=== PATIENT | male | born 1940 | race Caucasian/White ===

== ENCOUNTER 2020-07-16 12:51 | Outpatient (CLI) | payer MEDICARE ==
[2020-07-16] MEDS ORDERED: Iopamidol 370 76% 100 ML VIAL ONE (13:04)
--- NOTE | 2020-07-16 18:51 | CT ---
CT ABDOMEN AND PELVIS PERFORMED WITH AND WITHOUT CONTRAST ENHANCEMENT: 07/16/20 HISTORY: Hematuria. Patient has a bladder tumor. COMPARISON: A 08/20/15 study. The lung bases are clear of infiltrates. There is some scarring present. No pulmonary nodules are id entified. Two hypodensities within the left lobe of the liver are most likely cysts. There are stable. The sple en, pancreas and gallbladder regions all appear unremarkable. The right and left adrenal glands are normal. Small exophytic upper pole right renal cyst is stable a s compared to the prior study. No renal calculi. No obstruction. No filling defects within either alanis al pelvis or ureter. No significant periaortic or mesenteric adenopathy. CT OF PELVIS PERFORMED WITH AND WITHOUT CONTRAST ENHANCEMENT: Left sided bladder mass is present. There is no significant pelvic lymphadenopathy. No free fluid. Review of osseous structures show no concerning lytic or blastic bone changes. IMPRESSION: 1. Left sided bladder mass measuring approximately 3.3 cm in maximum length. No evidence for met astatic disease. 2. Stable hypodensities within the left lobe of the liver most likely cysts. POS: SAMMIE
== END 2020-07-16 12:52 | disposition home or self-care (01) ==
LOC: BICCT 12:51
PROVIDERS: ATTEND Urology
DX: D41.4 Neoplasm of uncertain behavior of bladder (principal); N32.89 Other specified disorders of bladder; K76.89 Other specified diseases of liver
CPT/HCPCS: 74178; 82565; Q9967

== ENCOUNTER 2020-07-24 07:59 | Outpatient (CLI) | payer MEDICARE, OTHER ==
[2020-07-24 16:21] LABS: Bilirubin Neg (Negative); Blood, Urine 50 (Negative); Clarity Clear (Clear); Glucose, Urine (Dipstick) Normal (Negative); Ketone, Urine Negative (Negative); Leukocyte Negative (Negative); Nitrite Negative (Negative); Protein, Urine (Dipstick) Negative (Neg-Trace); Specific Gravity, Urine 1.015 (1.002-1.036); Urobilinogen Normal mg/dL (Less than 2)
[2020-07-24 16:22] LABS: Hemoglobin 11.1 g/dL (14.0-18.0); Mean Corpuscular HGB CONC 32.8 G/DL (32.0-36.0); Mean Corpuscular Hemoglobin 28.3 PG (27.0-33.0); Mean Corpuscular Volume 86.2 fl (80.0-100.0); Platelet Count 205 10x3/uL (130-400); RBC Distribution Width 13.9 % (11.5-14.5); Red Blood Cell (RBC) Count 3.92 10x6/uL (4.40-5.80); White Blood Cell (WBC) Count 8.2 10x3/uL (4.5-11.0)
[2020-07-24 16:30] LABS: RBC/HPF 21-50 HPF (0-3); Squamous Epithelial None Seen HPF (0-3)
[2020-07-24 16:31] LABS: Bacteria/HPF Rare-Few HPF (None Seen)
[2020-07-24 16:41] LABS: PTT 24.7 sec (22.0-33.0); Prothrombin Time 10.2 sec (9.5-12.1)
[2020-07-24 16:45] LABS: Anion Gap 16 mmol/L (10-20); BUN (Urea Nitrogen) 17 mg/dL (8.4-25.7); Calc. Creatinine Clearance 0 mL/min (70-130); Calcium 8.6 mg/dL (7.8-10.44); Carbon Dioxide 21 mmol/L (23-31); Chloride 102 mmol/L (98-107); Glucose 123 mg/dL (83-110); Potassium 3.9 mmol/L (3.5-5.1); Sodium 135 mmol/L (136-145)
[2020-07-25 02:04] LABS: SARS-CoV-2 MS2 Positive; SARS-CoV-2 N Gene Negative; SARS-CoV-2 S Gene Negative; SARS-CoV-2 by NAA Not Detected (NotDetected); SARS-CoV-2 orf1ab Negative
== END 2020-07-24 08:00 | disposition home or self-care (01) ==
LOC: LABBT 07:59
PROVIDERS: ATTEND Urology
DX: Z01.818 Encounter for other preprocedural examination (principal); Z01.812 Encounter for preprocedural laboratory examination; Z20.828 Contact with and (suspected) exposure to other viral communicable diseases; D41.4 Neoplasm of uncertain behavior of bladder
CPT/HCPCS: 80048; 81001; 85027; 85610; 85730; 87086; 93005; U0003; 87635; 93010

== ENCOUNTER 2020-10-02 13:19 | Outpatient (CLI) | payer MEDICARE ==
[2020-09-19 13:01] LABS: Hemoglobin 11.2 g/dL (13.5-17.5); Mean Corpuscular HGB CONC 31.6 g/dL (32.0-36.0); Mean Corpuscular Hemoglobin 27.5 pg (27.0-33.0); Mean Platelet Volume 9.7 fl (7.4-10.4); Platelet Count 188 10x3/uL (150-450); RBC Distribution Width 14.1 % (11.5-14.5); Red Blood Cell (RBC) Count 4.07 10x6/uL (4.32-5.72); White Blood Cell (WBC) Count 4.1 10x3/uL (3.5-10.5)
[2020-09-19 13:22] LABS: Anion Gap 12 mmol/L (10-20); BUN (Urea Nitrogen) 16 mg/dL (8.4-25.7); Calc. Creatinine Clearance 0 mL/min (70-130); Carbon Dioxide 26 mmol/L (23-31); Chloride 102 mmol/L (98-107); Glucose 101 mg/dL (83-110); Potassium 4.2 mmol/L (3.5-5.1); Sodium 136 mmol/L (136-145)
[2020-09-19 13:34] LABS: PTT 27.3 sec (22.0-33.0); Prothrombin Time 10.4 sec (9.5-12.1)
[2020-09-20 02:07] LABS: SARS-CoV-2 PCR by NAA Not Detected (NotDetected)
--- NOTE | 2020-09-24 15:20 | EKG ---
Test Reason : Blood Pressure : / mmHG Vent. Rate : 063 BPM Atrial Rate : 063 BPM P-R Int : 190 ms QRS Dur : 088 ms QT Int : 422 ms P-R-T Axes : 043 027 059 degrees QTc Int : 431 ms Normal sinus rhythm Normal ECG When compared with ECG of 24-JUL-2020 16:07, (Unconfirmed) No significant change was found Confirmed by VANESA FRASER (2) on 09/24/2020 3:20:04 PM Referred By: GABI Confirmed By:VANESA FRASER
[2020-10-02 22:37] LABS: SARS-CoV-2 PCR by NAA Not Detected (NotDetected)
== END 2020-10-02 13:20 | disposition home or self-care (01) ==
LOC: LABBT 13:19
PROVIDERS: ATTEND Urology
DX: Z01.818 Encounter for other preprocedural examination (principal); D41.4 Neoplasm of uncertain behavior of bladder; Z20.822 Contact with and (suspected) exposure to COVID-19
CPT/HCPCS: 80048; 85027; 85610; 85730; 87086; 93005; U0003 ×2; U0005 ×2; 87635; 93010

== ENCOUNTER 2020-10-07 07:50 | Day surgery (SDC) | payer MEDICARE ==
[2020-10-06 13:07] VITALS: BMI 29.5
[2020-10-07] MEDS ORDERED: mitoMYcin 40 MG in Water For Injection,Sterile 20 ML FS SCH (09:15)
[2020-10-07] MEDS ORDERED: Iothalamate Meglumine 60% 50 ML VIAL FS ONE (09:44)
[2020-10-07] MEDS ORDERED: Fentanyl 100 MCG/2 ML VIAL ONE ×3 (10:04→11:47)
[2020-10-07] MEDS ORDERED: Levofloxacin 500 mg/D5W 100 ml Premix Bag ONE (10:08)
[2020-10-07] MEDS ORDERED: Dexamethasone 20 MG/5 ML VIAL ONE (10:50)
[2020-10-07] MEDS ORDERED: Ondansetron PF 4 MG/2 ML Vial ONE (10:50)
[2020-10-07] MEDS ORDERED: Rocuronium Bromide 10 MG/ML (10ML VIAL) ONE (10:50)
[2020-10-07] MEDS ORDERED: Ketorolac Tromethamine 30 MG/ML VIAL ONE (10:50)
[2020-10-07] MEDS ORDERED: Lidocaine 1% PF 5 ML VIAL ONE (10:50)
[2020-10-07] MEDS ORDERED: PROPOFOL 200 MG/20 ML VIAL ONE (10:50)
[2020-10-07] MEDS ORDERED: Glycopyrrolate 0.2 MG/ML 5 ML SYRINGE ONE (10:50)
[2020-10-07] MEDS ORDERED: SUGAMMADEX SODIUM 200 MG/2 ML VIAL ONE (11:01)
[2020-10-07] MEDS ORDERED: Oxybutynin 5 MG TAB ONE (11:23)
--- NOTE | 2020-10-07 11:30 | OP ---
DATE OF PROCEDURE: 10/07/2020 PREOPERATIVE DIAGNOSIS: Bladder tumor. 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 PROCEDURES PERFORMED: Transurethral resection of large bladder tumor, bilateral retrograde pyelogram, instillation of mitomycin-C. ANESTHESIA: General. COMPLICATIONS: None. ESTIMATED BLOOD LOSS: Minimal. SPECIMENS: Bladder tumor, muscle biopsy. DESCRIPTION OF PROCEDURE: After informed consent, the patient was taken to the operating room, transferred to the table under his own power. Anesthesia was established. A time-out was performed, showing the correct patient, site, and procedure. Preoperative antibiotics were administered. He was prepped and draped in the lithotomy position. I began by performing a digital rectal exam noting an enlarged prostate about 50 g, smooth and symmetric. No nodules or induration. No lateral wall fixation. I then donned gloves and gown. The rigid resectoscope was advanced through the urethra noting normal course and caliber of the urethra into the prostate noting large coapting lateral lobes and an obstructing bladder neck. The bladder was entered and systematically examined noting a large tumor occupying almost the entirety of the left wall. There were no other tumors or satellite lesions surrounding this. Both ureters were normal in appearance, although the left ureter was about 5 to 10 mm away from the tumor. The Pollack catheter was used to perform right and left retrograde pyelogram, both of which showed good filling of both ureters and renal pelves without contour abnormalities or filling defects. I then inserted the resection loop and removed the entirety of the bladder tumor, which was then passed off as specimen. Hemostasis was achieved with cautery. I then took two samples of the muscle layer of the bladder, which were passed off separately. The bladder was drained, re-examined, noting no active bleeding and the left ureter uninvolved with resection. The scope was then withdrawn and a 20-Marshallese Robles catheter placed with 10 mL instilled in the balloon. 40 mg of mitomycin in 20 mL was instilled through the catheter into the bladder and the catheter plugged. He was then awoken from anesthesia, transferred back to his hospital bed and taken to PACU in stable condition, where the mitomycin will be drained in 1 hour and the catheter left to bag drainage for the next 2 days. Job ID: [id number]
--- NOTE | 2020-10-07 11:35 | RAD ---
Retrograde pyelogram: 10/07/2020 HISTORY: Cystoscopy/retrograde pyelography FINDINGS: 2 images from a bilateral retrograde pyelogram provided. There is contrast media within par tially opacified renal collecting systems and bilateral ureters demonstrating no discrete filling defect. Motion and incomplete distention limits detailed assessment of both kidneys. IMPRESSION: Retrograde pyelogram as above.
[2020-10-07] MEDS ORDERED: Promethazine HCl 25 MG/ML VIAL ONE (12:51)
[2020-10-07] MEDS ORDERED: Morphine 2 MG/ML VIAL ONE (12:58)
== END 2020-10-07 15:00 | disposition home or self-care (01) ==
LOC: SDC 07:50
PROVIDERS: ATTEND Urology
PROC: 0T5B8ZZ Destruction of Bladder, Via Natural or Artificial Opening Endoscopic (ICD-10-PCS; principal; 2020-10-07)
DX: C67.9 Malignant neoplasm of bladder, unspecified (principal); N40.1 Benign prostatic hyperplasia with lower urinary tract symptoms; R35.0 Frequency of micturition; E03.9 Hypothyroidism, unspecified; H40.9 Unspecified glaucoma; Z79.899 Other long term (current) drug therapy; Z88.0 Allergy status to penicillin; Z88.5 Allergy status to narcotic agent
CPT/HCPCS: 52240; 74420; J2270; J9280; 88305; 88307; J1100; J1885; J1956; J2405; J2550; J2704; J3010